=== PATIENT | female | born 1995 | race Caucasian/White ===

== ENCOUNTER 2020-12-03 17:25 | Emergency (ER) | payer SELFPAY ==
[~2020-12-03] VITALS: Ht 170.2 cm; Wt 61.4 kg
[2020-12-03 17:39] VITALS: TEMP 98.7
[2020-12-03] MEDS ORDERED: AMOXICILLIN 8751 TAB PO (17:48)
[2020-12-03 18:05] VITALS: BP 114/73; PULSE 67
== END 2020-12-03 18:05 | disposition home or self-care (01) ==
LOC: COL.ER 17:25
DX: S61.451A Open bite of right hand, initial encounter (principal); S61.452A Open bite of left hand, initial encounter; W55.01XA Bitten by cat, initial encounter